=== PATIENT | male | born 1950 | race Caucasian/White ===

== ENCOUNTER 2018-09-30 09:17 | Outpatient (CLI) | payer BC ==
--- NOTE | 2018-09-30 13:29 | CT ---
CT ABDOMEN WITH AND WITHOUT IV CONTRAST: Date: 09/30/18 HISTORY: Left kidney cyst. FINDINGS: The lung bases are clear. The liver, spleen, pancreas, and adrenal glands are normal. No calcified ga llstones are seen. No calculi seen in the kidneys or visualized portions of the ureters. No hydroureteronephrosis is see n on either side. Postcontrast images demonstrate no evidence of an enhancing mass. There is normal c ontrast excretion into the pelvicaliceal systems and ureters. There is a 5.2 cm exophytic mass arisin g from the inferior pole of the left kidney which has attenuation values of a simple cyst and demonst rates no solid components, septation, or abnormal postcontrast enhancement. No free air, free fluid, or lymphadenopathy seen in the abdomen. There are vascular calcifications wi thout evidence of aneurysmal dilatation of the abdominal aorta. There are degenerative changes in the spine. There is colonic diverticulosis. IMPRESSION: 1. Left renal cyst. 2. Colonic diverticulosis. POS: [facility]
== END 2018-09-30 09:18 | disposition home or self-care (01) ==
LOC: SCSCT 09:17
PROVIDERS: ATTEND Family Medicine
DX: N28.1 Cyst of kidney, acquired (principal); K57.30 Diverticulosis of large intestine without perforation or abscess without bleeding
CPT/HCPCS: 74170; 82565

== ENCOUNTER 2019-04-14 13:55 | Outpatient (CLI) | payer BC ==
--- NOTE | 2019-04-14 16:19 | CT ---
EXAM: CT Abdomen WO Con PROVIDED CLINICAL HISTORY: Renal cyst COMPARISON: 09/30/2018 FINDINGS: The visualized lung bases are free of significant opacity. Exophytic inferior pole left renal cyst is redemonstrated. This measures about 5.1 x 5.[address] transverse and AP dimensions, and about 4.8 cm in craniocaudal dimension. There are tiny nonobstructing renal calculi present bilaterally. The solid abdominal organs demonstrate an otherwise unremarkable, unenhanced appearance, suboptimally evaluated in the absence of IV contrast. There is no bowel dilatation, inflammatory fat stranding, free fluid or lymph node enlargement apparent. Vascular calcifications are seen. Colonic diverticula are noted. The osseous structures demonstrate no concerning lytic or blastic lesions. IMPRESSION: Left renal cyst is redemonstrated.
== END 2019-04-14 13:56 | disposition home or self-care (01) ==
LOC: SCSCT 13:55
PROVIDERS: ATTEND Family Medicine
DX: N28.1 Cyst of kidney, acquired (principal)
CPT/HCPCS: 74150

== ENCOUNTER 2023-05-23 08:50 | Outpatient (CLI) | payer MEDICARE, BC ==
[2023-05-23 10:16] LABS: Hemoglobin 13.3 g/dL (13.5-17.5); Mean Corpuscular HGB CONC 32.4 g/dL (32.0-36.0); Mean Corpuscular Hemoglobin 30.5 pg (27.0-33.0); Mean Platelet Volume 9.8 fl (7.4-10.4); Platelet Count 167 10x3/uL (150-450); RBC Distribution Width 12.7 % (11.5-14.5); Red Blood Cell (RBC) Count 4.36 10x6/uL (4.32-5.72); White Blood Cell (WBC) Count 7.4 10x3/uL (3.5-10.5)
[2023-05-23 10:51] LABS: Anion Gap 12 mmol/L (10-20); BUN (Urea Nitrogen) 20 mg/dL (8.4-25.7); Calc. Creatinine Clearance 0 mL/min (70-130); Calcium 9.3 mg/dL (7.8-10.44); Carbon Dioxide 27 mmol/L (23-31); Chloride 104 mmol/L (98-107); Estimated GFR 81; Glucose 101 mg/dL (83-110); Potassium 4.6 mmol/L (3.5-5.1); Sodium 138 mmol/L (136-145)
== END 2023-05-23 08:51 | disposition home or self-care (01) ==
LOC: LABBT 08:50
PROVIDERS: ATTEND Thoracic Surgery (Cardiothoracic Vascular Surgery)
DX: Z01.812 Encounter for preprocedural laboratory examination (principal); I65.29 Occlusion and stenosis of unspecified carotid artery
CPT/HCPCS: 80048; 85027